=== PATIENT | female | born 1950 | race American Indian/Alaskan Native ===

== ENCOUNTER 2017-05-05 17:49 | Emergency (ER) | payer MEDICARE ==
--- NOTE | 2017-05-05 17:54 | Emergency Department Report ---
Chief Complaint: Sore Throat Stated Complaint: SOMETHING IN THROAT Time Seen by Provider: 05/05/17 17:51 - HPI History of Present Illness: PT states she was eating chicken on Thursday or Thursday night and a piece of bone got stuck in her throat. pt has been eating but she still feels the bone. - ROS Review of Systems: - drooling - Exam Physical Exam: pt looks well, non toxic no trismus MSE screening note: Focused history and physical exam performed. Due to findings the following was ordered: ED Disposition for MSE Condition: Stable
[2017-05-05] MEDS ORDERED: TRIMOX PO ONE (20:06)
[2017-05-05] MEDS ORDERED: CATAPRES PO ONE (20:06)
[2017-05-05] MEDS ORDERED: TYLENOL PO ONE (20:06)
--- NOTE | 2017-05-05 20:17 | Emergency Department Report ---
HPI - General Chief Complaint: Neck Pain/Injury Time Seen by Provider: 05/05/17 17:51 - HPI HPI: This is 66-year-old female who presents to the emergency room and reports that she was eating chicken and feels like she has a piece of chicken didn't bone in her throat. She said this happened on Thursday night which was 05/01/2017. Patient denies any difficulty breathing or any foreign body sensation in her throat she says she is disoriented because she could see the chicken bone when he went down and now she cannot see it. Denies any nausea or vomiting. Denied any feeling of impending doom. Pain is 0-10. She states that she took Motrin and her pain went away. Denies cough or shortness of breath. Denies any chest pain. ED Past Medical Hx - Past Medical History Previous Medical History?: Yes Hx Hypertension: Yes Additional medical history: low potassium, thyroid - Surgical History Past Surgical History?: Yes Additional Surgical History: left ankle, right knee - Family History Family history: hypertension - Social History Smoking Status: Former Smoker Substance Use Type: Alcohol - Medications Home Medications: Home Medications Medication Instructions Recorded Confirmed Last Taken Type Ibuprofen [Motrin 600 MG tab] 600 mg PO Q8H PRN #30 tablet 09/25/15 Unknown Rx traMADol [Ultram 50 MG tab] 50 mg PO Q6HR PRN #20 tablet 09/25/15 Unknown Rx ED Review of Systems ROS: Stated complaint: SOMETHING IN THROAT Other details as noted in HPI Comment: All other systems reviewed and negative Constitutional: denies: chills, fever ENT: other (reports for chicken bone stuck in throat). denies: throat pain Respiratory: no symptoms reported Cardiovascular: denies: chest pain, palpitations, edema, syncope Musculoskeletal: denies: back pain, myalgia Skin: denies: rash Neurological: denies: headache Physical Exam - Physical Exam Vital Signs: Vital Signs 05/05/17 17:52 Temperature 98.6 F Pulse Rate 77 Respiratory 16 Rate Blood Pressure 175/91 O2 Sat by Pulse 99 Oximetry General: This is a 58-year-old female well-nourished well-developed and has no acute distress. Physical Exam: Head: Normocephalic, atraumatic. No abrasions, laceration or contusion Neck: Supple, no adenopathy. Full range of motion. No C-spine tenderness. No muscular tenderness Mouth: Moist, no pharyngeal exudate or erythema. Uvula is midline and oral airways patent. Tongue is normal. No trismus. No peritonsillar abscess. No foreign body noted to pharynx. Ear: Bilateral TMs pearly alford, bilateral EAC without any redness swelling or drainage. Neck: Full, full range of motion, supple, no tracheal deviation.no adenopathy. No stridor Bilateral tract is nontender to palpate. Abdomen: Nontender the palpation in all quadrants, no guarding or rebound tenderness. No CVA tenderness and normal bowel sounds in all quadrants. Extremity: No clubbing, cyanosis or edema. +2 pulses in all extremities. No neurovascular compromise. Capillary refill is less than 3 seconds. Good color , sensation, movement and temperature in all extremities. Skin: Jm and intact, no rash or lesions. PSYCH: Normal mood and behavior. ED Course Vital Signs 05/05/17 17:52 Temperature 98.6 F Pulse Rate 77 Respiratory 16 Rate Blood Pressure 175/91 O2 Sat by Pulse 99 Oximetry - Reevaluation(s) Reevaluation #1: 05/05/17 22:24 She is able to drink cranberry juice in the emergency room without any difficulties. She did not have any episode of nausea or vomiting nor does she report any difficulty swallowing. ED Medical Decision Making - Radiology Data Radiology results: image reviewed interpreted by me: soft tissue neck x-ray reviewed by Dr. Herrmann and no foreign body seen. - Medical Decision Making I collaborated with Dr. Herrmann on patient presentation, x-ray findings. He reviewed x-ray films and agrees that there was no foreign body seen. ED course: She had here complaining that she saw a chicken bone which she is worried about. She is asymptomatic with out any difficulty swallowing and said that she's been able to tolerate fluids at home. Given cranberry juice which she drank without any difficulties. Her vital signs are stable except for blood pressure which is slightly elevated. She does have a history of high blood pressure and has not taken her blood pressure medication which is that she'll take tonight. I discussed the patient that if she has any problem with swallowing, shortness of breath to return to the emergency room otherwise the x-ray did not show any foreign body. Critical care attestation.: If time is entered above; I have spent that time in minutes in the direct care of this critically ill patient, excluding procedure time. ED Disposition Clinical Impression: Foreign body sensation in throat, Sore throat Disposition: TO HOME OR SELFCARE Is pt being admited?: No Does the pt Need Aspirin: No Condition: Stable Instructions: Pharyngitis (ED) Additional Instructions: Please follow up with primary care as recommended Increase fluid intake Follow-up with ENT as instructed If you develop, shortness of breath, increasing sore throat, swelling of throat and difficulty swallowing please return to the emergency room [place] Your x-ray of the neck showed that there were no foreign body. Referrals: ENT [facility], [facility] [Provider Group] - 2-3 Days PRIMARY [facility] [Primary Care Provider] - 2-3 Days Forms: Work/School Release Form(ED)
[2017-05-05 20:22] VITALS: BP 132/82
--- NOTE | 2017-05-05 23:20 | XRay Report ---
FINAL REPORT EXAM: XR NECK SOFT TISSUE HISTORY: fb sensation COMPARISONS: None. FINDINGS: AP and lateral views of the neck No radiodense foreign body within the imaged airway. Mild subglottic soft tissue prominence anterior to C4-C5. Straightening of the cervical spine. Incomplete evaluation of the lung apices is unremarkable. Mild vertebral body height loss secondary to endplate remodeling at C5 and C6. Mild intervertebral disc space narrowing with associated endplate spondylosis in the lower cervical spine. IMPRESSION: No radiodense foreign body. Mild subglottic soft tissue prominence. Consider CT with intravenous contrast for further evaluation.
== END 2017-05-05 22:43 | disposition home or self-care (01) ==
LOC: ED 17:49
DX: J02.9 Acute pharyngitis, unspecified (principal); I10 Essential (primary) hypertension; Z87.891 Personal history of nicotine dependence
CPT/HCPCS: 70360; 99283

== ENCOUNTER 2019-03-20 01:43 | Emergency (ER) | payer MEDICARE ==
[2019-03-20 02:10] VITALS: BP 157/70
--- NOTE | 2019-03-20 04:03 | Emergency Department Report ---
- General Chief complaint: Animal Bite Stated complaint: R ARM SWOLLEN/INSECT BITE Time Seen by Provider: 03/20/19 03:31 Source: patient Mode of arrival: Ambulatory Limitations: No Limitations - History of Present Illness Initial comments: pt is a 68 yo female who presents to the ED with c/o an insect bite that occurred earlier yesterday morning. She states approximately an hour later she began to have increased redness. She states that she has had itching. she states that she has been using a stop itch cream. she denies any fever or drainage. she has a PMHx of HTN and states she did not take her medication. - Related Data Previous Rx's Medication Instructions Recorded Last Taken Type Ibuprofen [Motrin 600 MG tab] 600 mg PO Q8H PRN #30 tablet 09/25/15 Unknown Rx traMADol [Ultram 50 MG tab] 50 mg PO Q6HR PRN #20 tablet 09/25/15 Unknown Rx Bacitracin Zinc Oint [Antibiotic 1 applic TP BID #1 tube 03/20/19 Unknown Rx Oint] cephALEXin [Keflex] 500 mg PO BID 7 Days #14 cap 03/20/19 Unknown Rx diphenhydrAMINE [Benadryl CAP] 25 mg PO Q6HR PRN #20 capsule 03/20/19 Unknown Rx Allergies Allergy/AdvReac Type Severity Reaction Status Date / Time lisinopril Allergy Unknown Verified 03/20/19 01:51 niacin Allergy Swelling Verified 03/20/19 01:51 Abscess Boil HPI - HPI Chief Complaint: Animal Bite Stated Complaint: R ARM SWOLLEN/INSECT BITE Time Seen by Provider: 03/20/19 03:31 Home Medications: Previous Rx's Medication Instructions Recorded Last Taken Type Ibuprofen [Motrin 600 MG tab] 600 mg PO Q8H PRN #30 tablet 09/25/15 Unknown Rx traMADol [Ultram 50 MG tab] 50 mg PO Q6HR PRN #20 tablet 09/25/15 Unknown Rx Bacitracin Zinc Oint [Antibiotic 1 applic TP BID #1 tube 03/20/19 Unknown Rx Oint] cephALEXin [Keflex] 500 mg PO BID 7 Days #14 cap 03/20/19 Unknown Rx diphenhydrAMINE [Benadryl CAP] 25 mg PO Q6HR PRN #20 capsule 03/20/19 Unknown Rx Allergies/Adverse Reactions: Allergies Allergy/AdvReac Type Severity Reaction Status Date / Time lisinopril Allergy Unknown Verified 03/20/19 01:51 niacin Allergy Swelling Verified 03/20/19 01:51 ED Review of Systems ROS: Stated complaint: R ARM SWOLLEN/INSECT BITE Other details as noted in HPI Comment: All other systems reviewed and negative ED Past Medical Hx - Past Medical History Previous Medical History?: Yes Hx Hypertension: Yes Additional medical history: low potassium, thyroid - Surgical History Past Surgical History?: Yes Additional Surgical History: left ankle, right knee - Social History Smoking Status: Never Smoker Substance Use Type: None - Medications Home Medications: Home Medications Medication Instructions Recorded Confirmed Last Taken Type Ibuprofen [Motrin 600 MG tab] 600 mg PO Q8H PRN #30 tablet 09/25/15 Unknown Rx traMADol [Ultram 50 MG tab] 50 mg PO Q6HR PRN #20 tablet 09/25/15 Unknown Rx Bacitracin Zinc Oint [Antibiotic 1 applic TP BID #1 tube 03/20/19 Unknown Rx Oint] cephALEXin [Keflex] 500 mg PO BID 7 Days #14 cap 03/20/19 Unknown Rx diphenhydrAMINE [Benadryl CAP] 25 mg PO Q6HR PRN #20 capsule 03/20/19 Unknown Rx ED Physical Exam - General Limitations: No Limitations General appearance: alert, in no apparent distress - Head Head exam: Present: atraumatic, normocephalic - Eye Eye exam: Present: normal appearance - Respiratory Respiratory exam: Present: normal lung sounds bilaterally. Absent: respiratory distress, wheezes, rales, rhonchi, stridor, chest wall tenderness, accessory muscle use, decreased breath sounds, prolonged expiratory - Cardiovascular Cardiovascular Exam: Present: regular rate, normal rhythm, normal heart sounds. Absent: systolic murmur, diastolic murmur, rubs, gallop - Neurological Exam Neurological exam: Present: alert, oriented X3 - Psychiatric Psychiatric exam: Present: normal affect, normal mood - Skin Skin exam: Present: other (small papule to the right posterior forearm with surrounding erythema and increased warmth, no inudration, no fluctuance, no drainage, no blistering, no eschar, no skin denuding ) ED Course Vital Signs 03/20/19 03/20/19 01:49 01:50 Temperature 98.0 F 98.0 F Pulse Rate 80 80 Respiratory 16 18 Rate Blood Pressure 151/70 157/70 O2 Sat by Pulse 100 99 Oximetry ED Medical Decision Making - Medical Decision Making pt is a 68 yo female who presents to the ED with c/o an insect bite that occurred earlier yesterday morning. She states approximately an hour later she began to have increased redness. She states that she has had itching. she states that she has been using a stop itch cream. she denies any fever or drainage. she has a PMHx of HTN and states she did not take her medication. on exam pt has small papule to the right posterior forearm with surrounding erythema and increased warmth, no inudration, no fluctuance, no drainage, no blistering, no eschar, no skin denuding. appears to have a small amount of surrounding celluli tis. pt given keflex, bacitracin, and benadryl. please use medication as prescribed. discussed not to drive or operate heavy machinery while taking benadryl due to potential for drowsiness. follow up with your primary care doctor in the next 2-3 days for reevaluation and to discuss elevation in your blood pressure. return to the emergency room for any new or worsening symptoms or if symptoms are not improving. - Differential Diagnosis insect bite, cellulitis, abscess, allergic reaction Critical care attestation.: If time is entered above; I have spent that time in minutes in the direct care of this critically ill patient, excluding procedure time. ED Disposition Clinical Impression: Elevated blood pressure reading Insect bite Qualifiers: Encounter type: initial encounter Site of insect bite: forearm Laterality: right Qualified Code(s): S50.861A - Insect bite (nonvenomous) of right forearm, initial encounter Cellulitis Qualifiers: Site of cellulitis: extremity Site of cellulitis of extremity: upper extremity Laterality: right Qualified Code(s): L03.113 - Cellulitis of right upper limb Disposition: DC-01 TO HOME OR SELFCARE Is pt being admited?: No Does the pt Need Aspirin: No Condition: Stable Instructions: Cellulitis (ED), Insect Bite or Sting (ED) Additional Instructions: please use medication as prescribed. follow up with your primary care doctor in the next 2-3 days for reevaluation and to discuss elevation in your blood pressure. return to the emergency room for any new or worsening symptoms or if symptoms are not improving. Prescriptions: Bacitracin Zinc Oint [Antibiotic Oint] 1 applic TP BID #1 tube diphenhydrAMINE [Benadryl CAP] 25 mg PO Q6HR PRN #20 capsule PRN Reason: Itching cephALEXin [Keflex] 500 mg PO BID 7 Days #14 cap Referrals: ASHOK CROWLEY MD [Primary Care Provider] - 2-3 Days Time of Disposition: 04:08 Print Language: AMHARIC
== END 2019-03-20 04:30 | disposition home or self-care (01) ==
LOC: ED 01:43
DX: S50.861A Insect bite (nonvenomous) of right forearm, initial encounter (principal); L03.113 Cellulitis of right upper limb; I10 Essential (primary) hypertension; Z88.1 Allergy status to other antibiotic agents; Z88.5 Allergy status to narcotic agent; W57.XXXA Bitten or stung by nonvenomous insect and other nonvenomous arthropods, initial encounter; Y93.89 Activity, other specified; Y92.89 Other specified places as the place of occurrence of the external cause; Y99.8 Other external cause status
CPT/HCPCS: 99282

== ENCOUNTER 2019-09-19 08:05 | Emergency (ER) | payer MEDICARE ==
--- NOTE | 2019-09-19 09:15 | Emergency Department Report ---
HPI - General Chief Complaint: Altered Mental Status Time Seen by Provider: 09/19/19 08:52 - HPI HPI: 69-year-old -Cypriot female presents to the emergency department with the complaint of a insect infestation. Patient says that she feels and some times sees very small bugs are crawling around her body and inside of her skin and they are "putting glue all over me." The patient says that she has taken multiple baths in the past 24 hours, including 1 this morning, to try and get the glue off of her skin. Sometimes she will rub herself down with alcohol as well. Patient says that she is constantly itching. She also states that they are gluing her vagina and rectum together. These complaints all started around March of this year when the patient did have some type of insect or bug bite to her forearm with some mild cellulitis that was treated with antibiotics at that time. She says that she has also been placed on permethrin in the past. The patient has seen her primary care physician, Dr. pierce, for these symptoms as well but says that the PCP did not do much for her. She lives with her son who says that he has not noticed any obvious signs of any infestation, bed bugs, or otherwise. Her room has been thoroughly cleaned and they have had pest control come out to the house. Patient has a past medical history of hypertension and hypothyroidism but denies any past psychiatric history. ED Past Medical Hx - Past Medical History Previous Medical History?: Yes Hx Hypertension: Yes Additional medical history: hypothyroid - Surgical History Past Surgical History?: Yes Additional Surgical History: left ankle, right knee - Social History Smoking Status: Never Smoker Substance Use Type: None - Medications Home Medications: Home Medications Medication Instructions Recorded Confirmed Last Taken Type Ibuprofen [Motrin 600 MG tab] 600 mg PO Q8H PRN #30 tablet 09/25/15 Unknown Rx traMADoL [Ultram 50 MG tab] 50 mg PO Q6HR PRN #20 tablet 09/25/15 Unknown Rx Bacitracin Zinc Oint [Antibiotic 1 applic TP BID #1 tube 03/20/19 Unknown Rx Oint] cephALEXin [Keflex] 500 mg PO BID 7 Days #14 cap 03/20/19 Unknown Rx diphenhydrAMINE [Benadryl CAP] 25 mg PO Q6HR PRN #20 capsule 03/20/19 Unknown Rx ED Review of Systems ROS: Stated complaint: INFECTION Other details as noted in HPI Comment: All other systems reviewed and negative Constitutional: denies: chills, fever Respiratory: denies: shortness of breath Cardiovascular: denies: chest pain Gastrointestinal: denies: abdominal pain, vomiting Skin: lesions, pruritus Neurological: denies: headache, weakness Physical Exam - Physical Exam Vital Signs: Vital Signs 09/19/19 09/19/19 08:17 08:43 Temperature 97.3 F L 97.5 F L Pulse Rate 82 81 Respiratory 18 16 Rate Blood Pressure 143/68 153/81 [Right] O2 Sat by Pulse 98 100 Oximetry Physical Exam: GENERAL: The patient is well-developed well-nourished. HENT: Normocephalic. Atraumatic. Patient has moist mucous membranes. EYES: Extraocular motions are intact. NECK: Supple. Trachea is midline. CHEST/LUNGS: Clear to auscultation. There is no respiratory distress noted. HEART/CARDIOVASCULAR: Regular. There is no tachycardia. There is no murmur. ABDOMEN: Abdomen is soft, nontender. Patient has normal bowel sounds. There is no abdominal distention. SKIN: Skin is warm and dry. NEURO: The patient is awake, alert, and oriented. The patient is cooperative. The patient has no focal neurologic deficits. Normal speech. MUSCULOSKELETAL: There is no tenderness or deformity. There is no limitation range of motion. There is no evidence of acute injury. PELVIC: No significant abnormalities seen to the labia or external vagina. ED Course Vital Signs 09/19/19 09/19/19 08:17 08:43 Temperature 97.3 F L 97.5 F L Pulse Rate 82 81 Respiratory 18 16 Rate Blood Pressure 143/68 153/81 [Right] O2 Sat by Pulse 98 100 Oximetry ED Medical Decision Making - Lab Data Result diagrams: 09/19/19 09:24 09/19/19 09:24 - Medical Decision Making This patient comes in with the complaint of having bugs crawling all over her and bugs being underneath her skin. She basically talks of a infestation. This is been going on since the patient was here for what appeared to be a small bug bite with surrounding cellulitis. However at that time there was a visible papule and some erythema. Now, the patient starts talking about how these bugs are putting glue all over her and is even said that it is causing a closure to her vagina, rectum, and connecting the 2. On physical examination there are no signs of any rash, residue, significant excoriations or any obvious signs of any bug bites or infestation. There are no visible papules, intertriginous lesions. Patient's labs were unremarkable including CBC, metabolic panel, urinalysis and urine drug screen. I have a higher suspicion that the patient is having some delusions or hallucinations. However the patient is oriented to person, place, time. She is otherwise calm and appropriate. She is not having any suicidal or homicidal ideations. The patient does not appear to meet criteria to be made a 1013 or require involuntary inpatient psychiatric admission. She'll be given a referral for dermatology and has also been given a referral for the [facility]. She has been instructed to return to the emergency Department with any worsening of her symptoms or any acute distress. Critical Care Time: No Critical care attestation.: If time is entered above; I have spent that time in minutes in the direct care of this critically ill patient, excluding procedure time. ED Disposition Clinical Impression: Itching, Formication Disposition: DC-01 TO HOME OR SELFCARE Is pt being admited?: No Condition: Stable Additional Instructions: Please follow-up with your primary care physician in the next few days. I have given you a referral for a local associate account executive, Dr. Beltran, to follow up regarding your itching and your concern for some skin color changes and lesions. I have also given you a referral for the [facility] facility. Please return to the emergency Department with any worsening of your symptoms or any acute distress. Referrals: EMILY BELTRAN MD [Staff Physician] - 2-3 Days [facility] [Outside] - 2-3 Days Time of Disposition: 10:41
[2019-09-19 09:36] LABS: Basophils % (Auto) 0.8 % (0.0-1.8); Eosinophils # (Auto) 0.1 K/mm3 (0.0-0.4); Hematocrit 33.9 % (30.3-42.9); Lymphocytes # (Auto) 1.5 K/mm3 (1.2-5.4); Lymphocytes % (Auto) 29.7 % (13.4-35.0); Mean Corpuscular HGB Conc 32 % (30-34); Mean Corpuscular Volume 79 fl (79-97); Monocytes # (Auto) 0.4 K/mm3 (0.0-0.8); Monocytes % (Auto) 8.6 % (0.0-7.3); Platelet Count 230 K/mm3 (140-440); Red Cell Distribution Width 14.5 % (13.2-15.2)
[2019-09-19 10:00] LABS: Alanine Aminotransferase 14 units/L (7-56); BUN/Creatinine Ratio 12; Blood Urea Nitrogen 12 mg/dL (7-17); Calcium 9.5 mg/dL (8.4-10.2); Hemolysis Index 4
[2019-09-19 10:15] LABS: Bilirubin,Urine NEG (Negative); Blood,Urine SM (Negative); Color,Urine Straw (Yellow); Protein,Urine <15 mg/dL mg/dL (Negative); Urobilinogen,Urine < 2.0 mg/dL (<2.0); WBC,Urine < 1.0 /HPF (0.0-6.0)
[2019-09-19 10:19] VITALS: BP 137/51
[2019-09-19 10:33] LABS: Amphetamine Screen,Urine PRESUMPTIVE NEGATIVE; Benzodiazepines Screen,Urine PRESUMPTIVE NEGATIVE; Cannabinoid Screen,Urine PRESUMPTIVE NEGATIVE; Cocaine Screen,Urine PRESUMPTIVE NEGATIVE; Methadone Screen,Urine PRESUMPTIVE NEGATIVE; Opiate Screen,Urine PRESUMPTIVE NEGATIVE
== END 2019-09-19 11:06 | disposition home or self-care (01) ==
LOC: ED 08:05
DX: L29.9 Pruritus, unspecified (principal); R20.2 Paresthesia of skin; I10 Essential (primary) hypertension; E03.9 Hypothyroidism, unspecified; Z98.890 Other specified postprocedural states; Z79.1 Long term (current) use of non-steroidal anti-inflammatories (NSAID); Z79.899 Other long term (current) drug therapy
CPT/HCPCS: 36415; 80053; 80307; 81001; 85025